=== PATIENT | male | born 1975 | race Two or more races ===

== ENCOUNTER 2022-06-18 15:19 | Emergency (ER) | payer SELFPAY ==
[~2022-06-18] VITALS: Ht 165.1 cm; Wt 74.8 kg
--- NOTE | 2022-06-18 15:42 | NUR ---
BIBRA 89 C/O ABDOMINAL PAIN AFTER "DOWN A WHOLE BOTTLE OF TEQUILA". AAOX3, BREATHING EVEN AND UNLABORED, CONNECTED TO MONITOR. AWAITING MD ORDERS.
[2022-06-18 16:05] LABS: BASOPHILS # (AUTO) 0.1 K/uL (0.0-0.2); BASOPHILS % (AUTO) 3.1 % (0.0-2.0); EOSINOPHILS % (AUTO) 2.9 % (0.0-6.0); HEMATOCRIT 39 % (39-51); LYMPHOCYTES # (AUTO) 0.4 K/uL (0.8-4.8); LYMPHOCYTES % (AUTO) 16.4 % (20.0-44.0); MEAN CORPUSCULAR HGB CONC 33 g/dl (31.0-36.0); MEAN CORPUSCULAR VOLUME 90 fL (80-96); MONOCYTES # (AUTO) 0.3 K/uL (0.1-1.30); MONOCYTES % (AUTO) 12.8 % (2.0-12.0); NEUTROPHILS # (AUTO) 1.5 K/uL (1.8-8.9); NEUTROPHILS % (AUTO) 64.8 % (43.0-81.0); RED BLOOD CELL COUNT(AUTO) 4.31 MIL/uL (4.5-6.0); WHITE BLOOD COUNT (AUTO) 2.3 K/uL (4.3-11.0)
[2022-06-18 16:09] LABS: PLATELET COUNT (AUTO) 21 K/uL (150-450)
[2022-06-18 16:23] LABS: CARBON DIOXIDE 25 mmol/L (21-32); CHLORIDE 106 mmol/L (98-107); CREATININE 0.6 mg/dL (0.6-1.3); GLUCOSE 106 mg/dL (74-106); POTASSIUM 3.1 mmol/L (3.5-5.1); SODIUM SERUM 142 mmol/L (136-145); UREA NITROGEN, BLOOD 6 mg/dL (7-18)
[2022-06-18 16:28] LABS: ALANINE AMINOTRANSFERASE 67 U/L (12-78); ALBUMIN 2.3 g/dL (3.4-5.0); ALCOHOL, BLOOD 316 mg/dL (0-0); ALKALINE PHOSPHATASE 254 U/L (46-116); ASPARTATE AMINOTRANSFERASE 193 U/L (15-37); BILIRUBIN,DIRECT 4.9 mg/dL (0.0-0.2); BILIRUBIN,TOTAL 6.3 mg/dL (0.2-1.0)
[2022-06-18] MEDS ORDERED: POTASSIUM CHLORIDE 20 MEQ TAB.PRT.SR PO ONE ×2 (16:30→16:56)
--- NOTE | 2022-06-18 17:08 | NUR ---
UNABLE TO PROVIDE URINE AT THIS TIME.
--- NOTE | 2022-06-18 18:00 | NUR ---
PER DR SNEED, NO NEED TO COLLECT URINE
[2022-06-18 18:19] LABS: LYMPHOCYTES % (MANUAL) 10 % (16-48); MONOCYTES % (MANUAL) 7 % (0-11.0); NEUTROPHILS % (MANUAL) 82 (42-76); REACTIVE LYMPHOCYTES 1 % (0-0)
--- NOTE | 2022-06-19 06:01 | NUR ---
Patient discharged to home in stable condition. Written and verbal after care instructions given. Patient verbalizes understanding of instruction.
[2022-06-19 07:09] VITALS: BP 136/70
== END 2022-06-19 07:09 | disposition home or self-care (01) ==
LOC: ER 15:27
DX: F10.129 Alcohol abuse with intoxication, unspecified (principal); Y90.8 Blood alcohol level of 240 mg/100 ml or more
CPT/HCPCS: 36415; 80048-TC; 80076-TC; 85025-TC; G0480

== ENCOUNTER 2022-08-12 22:02 | Emergency (ER) | payer MEDICAID ==
[~2022-08-12] VITALS: Ht 152.4 cm; Wt 79.8 kg
[~2022-08-12 22:02] MED LIST: FURO40TA5 PO; RIFA550T PO
--- NOTE | 2022-08-12 22:20 | NUR ---
[id number] from [place], [facility], bg 155. pt minimally responsive, khmer speaking only. pt ambulated to restroom. breathing does not appear labored. pt attached to monitor and pox. kept comfortable. will monitor
[2022-08-12 23:00] VITALS: BP 121/76
[2022-08-13 00:46] LABS: BASOPHILS % (AUTO) 1.1 % (0.0-2.0); EOSINOPHILS % (AUTO) 3.9 % (0.0-6.0); HEMATOCRIT 33 % (39-51); HEMOGLOBIN 10.8 g/dL (13.5-17.5); LYMPHOCYTES # (AUTO) 0.7 K/uL (0.8-4.8); LYMPHOCYTES % (AUTO) 26.5 % (20.0-44.0); MEAN CORPUSCULAR HGB CONC 33 g/dl (31.0-36.0); MEAN CORPUSCULAR VOLUME 91 fL (80-96); MONOCYTES # (AUTO) 0.3 K/uL (0.1-1.30); MONOCYTES % (AUTO) 9.5 % (2.0-12.0); NEUTROPHILS # (AUTO) 1.6 K/uL (1.8-8.9); RED BLOOD CELL COUNT(AUTO) 3.57 MIL/uL (4.5-6.0); WHITE BLOOD COUNT (AUTO) 2.7 K/uL (4.3-11.0)
[2022-08-13 00:50] LABS: PLATELET COUNT (AUTO) 39 K/uL (150-450)
[2022-08-13 00:58] LABS: BILIRUBIN,TOTAL 4.4 mg/dL (0.2-1.0); CALCIUM, SERUM 7.1 mg/dL (8.5-10.1); CREATININE 0.6 mg/dL (0.6-1.3); POTASSIUM 3.1 mmol/L (3.5-5.1); TOTAL PROTEIN, SERUM 6.4 g/dL (6.4-8.2)
[2022-08-13 01:36] LABS: ALBUMIN 2.1 g/dL (3.4-5.0); BILIRUBIN,DIRECT 3.3 mg/dL (0.0-0.2)
[2022-08-13 03:29] LABS: BASOPHILS % (MANUAL) 0 % (0.0-2.0); EOSINOPHILS % (MANUAL) 2 % (0-4); LYMPHOCYTES % (MANUAL) 20 % (16-48); MONOCYTES % (MANUAL) 9 % (0-11.0); NEUTROPHILS % (MANUAL) 69 (42-76)
[2022-08-13] MEDS: POTASSIUM CHLORIDE 20 MEQ TAB.PRT.SR PO ONE ×2 (04:00→04:07)
[2022-08-13] MEDS ORDERED: POTASSIUM CHLORIDE 20 MEQ TAB.PRT.SR PO ONE (04:03)
--- NOTE | 2022-08-13 06:25 | NUR ---
urine collected, sent to lab
--- NOTE | 2022-08-13 06:36 | NUR ---
unable to administer KCl PO, patient appears lethargic, and may be at high risk for aspiration. will endorse to AM shift RN
[2022-08-13 06:44] LABS: BILIRUBIN,URINE 1+ (NEGATIVE); COLOR,URINE YELLOW (YELLOW); LEUKOCYTE ESTERASE ,URINE NEGATIVE (NEGATIVE); NITRITE, URINE NEGATIVE (NEGATIVE); PROTEIN,URINE NEGATIVE (NEGATIVE); UGLUCOSE NEGATIVE (NEGATIVE)
[2022-08-13 07:06] LABS: BACTERIA,URINE Rare /HPF (None Seen); SQUAMOUS EPITHELIAL CELL,UR Few /HPF (None Seen); WBC,URINE 0-2 /HPF (0-3)
--- NOTE | 2022-08-13 10:44 | NUR ---
Pt NO Longer in the Room. NOT in Bathrooms or WR. Possibly Eloped. Dr Hyde made aware
== END 2022-08-13 10:50 | disposition home or self-care (01) ==
LOC: ER 22:10
DX: F10.129 Alcohol abuse with intoxication, unspecified (principal); R41.82 Altered mental status, unspecified; K74.60 Unspecified cirrhosis of liver; Y90.8 Blood alcohol level of 240 mg/100 ml or more
CPT/HCPCS: 36415; 70450-TC; 80048-TC; 80076-TC; 81001; 85025-TC; G0480

== ENCOUNTER 2023-01-26 13:08 | Emergency (ER) | payer MEDICAID ==
[~2023-01-26] VITALS: Ht 152.4 cm; Wt 81.2 kg
[2023-01-26 14:12] LABS: CALCIUM, SERUM 7.3 mg/dL (8.5-10.1); CREATININE 0.5 mg/dL (0.6-1.3); POTASSIUM 3.3 mmol/L (3.5-5.1)
[2023-01-26 14:18] LABS: ALBUMIN 2.1 g/dL (3.4-5.0); BILIRUBIN,TOTAL 4.3 mg/dL (0.2-1.0); TOTAL PROTEIN, SERUM 7.3 g/dL (6.4-8.2)
[2023-01-26 14:33] LABS: INR 1.34 (0.91-1.10); PARTIAL THROMBOPLASTIN TIME 33.8 SEC (24.3-34.3); PROTHROMBIN TIME 13.8 SECS (9.2-11.1)
[2023-01-26 14:38] LABS: BASOPHILS % (AUTO) 0.5 % (0.0-2.0); EOSINOPHILS # (AUTO) 0.1 K/uL (0.0-0.7); EOSINOPHILS % (AUTO) 3.3 % (0.0-6.0); HEMATOCRIT 27 % (39-51); HEMOGLOBIN 8.7 g/dL (13.5-17.5); LYMPHOCYTES # (AUTO) 0.3 K/uL (0.8-4.8); MEAN CORPUSCULAR HEMOGLOBIN 27 PG (26.0-33.0); MEAN CORPUSCULAR HGB CONC 32 g/dl (31.0-36.0); MEAN CORPUSCULAR VOLUME 84 fL (80-96); MONOCYTES # (AUTO) 0.2 K/uL (0.1-1.30); MONOCYTES % (AUTO) 8.4 % (2.0-12.0); NEUTROPHILS # (AUTO) 1.3 K/uL (1.8-8.9); NEUTROPHILS % (AUTO) 69.8 % (43.0-81.0); RED BLOOD CELL COUNT(AUTO) 3.24 MIL/uL (4.5-6.0); RED CELL DISTRIBUTION WIDTH 21.9 % (11.5-15.0)
[2023-01-26 14:46] LABS: APPEARANCE,URINE CLEAR (CLEAR); BILIRUBIN,URINE NEGATIVE (NEGATIVE); BLOOD, URINE 3+ Ery/uL (NEGATIVE); COLOR,URINE YELLOW (YELLOW); KETONES,URINE NEGATIVE (NEGATIVE); LEUKOCYTE ESTERASE ,URINE NEGATIVE (NEGATIVE); NITRITE, URINE NEGATIVE (NEGATIVE); PH,URINE 6.5 (5.0-8.0); PROTEIN,URINE TRACE mg/dl (NEGATIVE); UGLUCOSE NEGATIVE (NEGATIVE); UROBILINOGEN,URINE 0.2 EU/dL (0.2)
[2023-01-26 14:52] LABS: PLATELET COUNT (AUTO) 14 K/uL (150-450); WHITE BLOOD COUNT (AUTO) 1.9 K/uL (4.3-11.0)
[2023-01-26] MEDS ORDERED: POTASSIUM CHLORIDE 20 MEQ TAB.PRT.SR PO ONE ×2 (15:30→16:06)
[2023-01-26 15:36] LABS: ADD URINE CULTURE NO; BACTERIA,URINE None seen /HPF (None Seen); RBC,URINE 51-80 /HPF (0-2); SQUAMOUS EPITHELIAL CELL,UR 0-2 /HPF (None Seen); WBC,URINE 0-2 /HPF (0-3)
[2023-01-26 16:19] LABS: ANISOCYTOSIS 1+; BAND % (MANUAL) 2 % (0.0-5.0); LYMPHOCYTES % (MANUAL) 12 % (16-48); MONOCYTES % (MANUAL) 8 % (0-11.0); NEUTROPHILS % (MANUAL) 78 (42-76); PLATELET ESTIMATE DECREASED; ROULEAUX 1+
[2023-01-26 21:08] VITALS: BP 136/76; TEMP 97.9; O2SAT 97
== END 2023-01-26 21:10 | disposition home or self-care (01) ==
LOC: ER 13:10
DX: F10.129 Alcohol abuse with intoxication, unspecified (principal); D50.0 Iron deficiency anemia secondary to blood loss (chronic); D69.6 Thrombocytopenia, unspecified; Z79.899 Other long term (current) drug therapy; Y90.8 Blood alcohol level of 240 mg/100 ml or more
CPT/HCPCS: 36415; 76705-TC; 80048-TC; 80076-TC; 81001; 83690-TC; 84484-TC; 85025-TC; 85730-TC; G0480

== ENCOUNTER 2023-02-10 00:07 | Emergency (ER) | payer MEDICAID ==
[~2023-02-10] VITALS: Ht 162.6 cm; Wt 77.1 kg
[2023-02-10 02:13] LABS: BASOPHILS % (AUTO) 1.7 % (0.0-2.0); EOSINOPHILS # (AUTO) 0.1 K/uL (0.0-0.7); EOSINOPHILS % (AUTO) 5.6 % (0.0-6.0); HEMATOCRIT 26 % (39-51); HEMOGLOBIN 8.3 g/dL (13.5-17.5); LYMPHOCYTES # (AUTO) 0.4 K/uL (0.8-4.8); LYMPHOCYTES % (AUTO) 25.1 % (20.0-44.0); MEAN CORPUSCULAR HEMOGLOBIN 27 PG (26.0-33.0); MEAN CORPUSCULAR HGB CONC 32 g/dl (31.0-36.0); MEAN CORPUSCULAR VOLUME 85 fL (80-96); MONOCYTES # (AUTO) 0.2 K/uL (0.1-1.30); MONOCYTES % (AUTO) 14.7 % (2.0-12.0); NEUTROPHILS # (AUTO) 0.8 K/uL (1.8-8.9); NEUTROPHILS % (AUTO) 52.9 % (43.0-81.0); RED BLOOD CELL COUNT(AUTO) 3.07 MIL/uL (4.5-6.0); RED CELL DISTRIBUTION WIDTH 22.8 % (11.5-15.0)
[2023-02-10 02:16] LABS: PLATELET COUNT (AUTO) 23 K/uL (150-450); WHITE BLOOD COUNT (AUTO) 1.6 K/uL (4.3-11.0)
[2023-02-10 02:31] LABS: ALANINE AMINOTRANSFERASE 36 U/L (12-78); ALBUMIN 1.8 g/dL (3.4-5.0); ALCOHOL, BLOOD 210 mg/dL (0-10); ALKALINE PHOSPHATASE 238 U/L (46-116); ASPARTATE AMINOTRANSFERASE 86 U/L (15-37); CARBON DIOXIDE 23 mmol/L (21-32); CHLORIDE 108 mmol/L (98-107); CREATININE 0.6 mg/dL (0.6-1.3); GLUCOSE 91 mg/dL (74-106); POTASSIUM 3.3 mmol/L (3.5-5.1); SODIUM SERUM 140 mmol/L (136-145); TOTAL PROTEIN, SERUM 6.5 g/dL (6.4-8.2); UREA NITROGEN, BLOOD 7 mg/dL (7-18)
[2023-02-10 02:33] LABS: ACETAMINOPHEN <10 ug/ml (10-30); SALICYLATE < 2.3 mg/dL (2.8-20.0)
[2023-02-10 03:01] LABS: CANNABINOID, URINE NEGATIVE (NEGATIVE); COCCAINE, URINE NEGATIVE (NEGATIVE); OPIATE, URINE NEGATIVE (NEGATIVE); PHENCYCLIDINE SCREEN,URINE NEGATIVE (NEGATIVE)
[2023-02-10 03:44] LABS: AMPHETAMINE, URINE POSITIVE (NEGATIVE); BARBITURATE, URINE POSITIVE (NEGATIVE); BENZODIAZEPINE, URINE POSITIVE (NEGATIVE)
[2023-02-10 03:49] LABS: APPEARANCE,URINE CLEAR (CLEAR); BILIRUBIN,URINE 2+ (NEGATIVE); BLOOD, URINE 1+ Ery/uL (NEGATIVE); COLOR,URINE DARK YELLOW (YELLOW); KETONES,URINE NEGATIVE (NEGATIVE); LEUKOCYTE ESTERASE ,URINE NEGATIVE (NEGATIVE); NITRITE, URINE NEGATIVE (NEGATIVE); PH,URINE 6.5 (5.0-8.0); PROTEIN,URINE NEGATIVE (NEGATIVE); UGLUCOSE TRACE mg/dL (NEGATIVE); UROBILINOGEN,URINE >=8.0 EU/dL (0.2)
[2023-02-10 03:50] LABS: ADD URINE CULTURE NO; BACTERIA,URINE Rare /HPF (None Seen); SQUAMOUS EPITHELIAL CELL,UR Few /HPF (None Seen); WBC,URINE 0-2 /HPF (0-3)
[2023-02-10 06:59] VITALS: BP 119/76; TEMP 98.9; O2SAT 99
[2023-02-10 13:06] LABS: ANISOCYTOSIS 1+; BASOPHILS % (MANUAL) 0 % (0.0-2.0); EOSINOPHILS % (MANUAL) 5 % (0-4); LYMPHOCYTES % (MANUAL) 22 % (16-48); MONOCYTES % (MANUAL) 12 % (0-11.0); NEUTROPHILS % (MANUAL) 61 (42-76); PLATELET ESTIMATE DECREASED
== END 2023-02-10 06:59 | disposition home or self-care (01) ==
LOC: ER 00:09
DX: F10.129 Alcohol abuse with intoxication, unspecified (principal); M79.604 Pain in right leg; K74.60 Unspecified cirrhosis of liver; Z79.899 Other long term (current) drug therapy; Z59.00 Homelessness unspecified; Y90.7 Blood alcohol level of 200-239 mg/100 ml
CPT/HCPCS: 36415; 71045-TC; 80048-TC; 80076-TC; 81001; 85025-TC; 93970-TC; G0480

== ENCOUNTER 2023-11-19 15:50 | Inpatient (IN) | payer MEDICAID, OTHER ==
[~2023-11-19] VITALS: Ht 165.1 cm; Wt 79.8 kg
[2023-11-19] MEDS ORDERED: IBUPROFEN 600 MG TABLET ONE (16:58)
[2023-11-19] MEDS ORDERED: ONDANSETRON HCL/PF 4 MG/2 ML VIAL ONE (16:58)
[2023-11-19 17:31] LABS: BASOPHILS # (AUTO) 0.1 K/uL (0.0-0.2); EOSINOPHILS # (AUTO) 0.1 K/uL (0.0-0.7); EOSINOPHILS % (AUTO) 1.6 % (0.0-6.0); HEMATOCRIT 26 % (39-51); HEMOGLOBIN 9.1 g/dL (13.5-17.5); LYMPHOCYTES # (AUTO) 0.3 K/uL (0.8-4.8); LYMPHOCYTES % (AUTO) 4.1 % (20.0-44.0); MEAN CORPUSCULAR HEMOGLOBIN 33 PG (26.0-33.0); MEAN CORPUSCULAR HGB CONC 36 g/dl (31.0-36.0); MEAN CORPUSCULAR VOLUME 92 fL (80-96); MONOCYTES # (AUTO) 0.6 K/uL (0.1-1.30); MONOCYTES % (AUTO) 7.9 % (2.0-12.0); NEUTROPHILS # (AUTO) 6.7 K/uL (1.8-8.9); NEUTROPHILS % (AUTO) 85.4 % (43.0-81.0); PLATELET COUNT (AUTO) 62 K/uL (150-450); RED CELL DISTRIBUTION WIDTH 18.2 % (11.5-15.0); WHITE BLOOD COUNT (AUTO) 7.8 K/uL (4.3-11.0)
[2023-11-19] MEDS: IBUPROFEN 600 MG TABLET PO ONE (17:36)
[2023-11-19] MEDS: ONDANSETRON HCL/PF 4 MG/2 ML VIAL IVP ONE (17:36)
[2023-11-19 17:40] LABS: CALCIUM, SERUM 7.4 mg/dL (8.5-10.1); CARBON DIOXIDE 20 mmol/L (21-32); CHLORIDE 94 mmol/L (98-107); CREATININE 1.2 mg/dL (0.6-1.3); GLUCOSE 109 mg/dL (74-106); POTASSIUM 4.2 mmol/L (3.5-5.1); SODIUM SERUM 123 mmol/L (136-145); UREA NITROGEN, BLOOD 26 mg/dL (7-18)
[2023-11-19 17:45] LABS: ALANINE AMINOTRANSFERASE 45 U/L (12-78); ALKALINE PHOSPHATASE 201 U/L (46-116); ASPARTATE AMINOTRANSFERASE 49 U/L (15-37); BILIRUBIN,DIRECT 2.1 mg/dL (0.0-0.2); LIPASE 47 U/L (16-77); TOTAL PROTEIN, SERUM 5.1 g/dL (6.4-8.2)
[2023-11-19 17:48] LABS: ALBUMIN 1.4 g/dL (3.4-5.0)
[2023-11-19 17:53] LABS: INR 1.38 (0.91-1.10); PARTIAL THROMBOPLASTIN TIME 34.2 SEC (24.3-34.3); PROTHROMBIN TIME 14.3 SECS (9.2-11.1)
[2023-11-19] MEDS ORDERED: SPIR100T5 PO (18:03)
[2023-11-19] MEDS ORDERED: FURO80TA85 PO (18:03)
[2023-11-19] MEDS ORDERED: LACT10SO58 PO (18:03)
[2023-11-19] MEDS ORDERED: POTA-88 PO (18:03)
[2023-11-19] MEDS ORDERED: FUROSEMIDE 40 MG/4 ML VIAL ONE (18:14)
[2023-11-19] MEDS: IV NS 0.9% 1,000 ML BAG IV ONE (18:20)
[2023-11-19 18:51] LABS: EOSINOPHILS % (MANUAL) 2 % (0-4); LYMPHOCYTES % (MANUAL) 3 % (16-48); MONOCYTES % (MANUAL) 5 % (0-11.0); NEUTROPHILS % (MANUAL) 90 (42-76); PLATELET ESTIMATE DECRE
[2023-11-19 18:52] LABS: ANISOCYTOSIS 1+; TARGET CELLS RARE
[2023-11-19] MEDS ORDERED: MAG HYDROX/AL HYDROX/SIMETH 30 ML UDC PO PRN (19:30)
[2023-11-19] MEDS ORDERED: MAGNESIUM HYDROXIDE 30 ML UDC PO PRN (19:30)
[2023-11-19] MEDS: HYDROMORPHONE 1 MG/1 ML DISP.SYRIN IV PRN (21:13)
[2023-11-19] MEDS: ONDANSETRON HCL/PF 4 MG/2 ML VIAL IVP PRN (21:29)
[2023-11-19 22:00] VITALS: BP 136/74; TEMP 98.4; O2SAT 100
[2023-11-19] MEDS ORDERED: ALBUMIN 25% 12.5 GM/50 ML BOTTLE IV PRN ×2 (22:00)
[2023-11-19] MEDS: PANTOPRAZOLE 40 MG VIAL IV SCH (23:03)
[2023-11-20 04:00] VITALS: BP 116/55; TEMP 98; O2SAT 100
[2023-11-20 06:44] LABS: INR 1.37 (0.91-1.10); PARTIAL THROMBOPLASTIN TIME 32.1 SEC (24.3-34.3); PROTHROMBIN TIME 14.2 SECS (9.2-11.1)
[2023-11-20 06:52] LABS: CALCIUM, SERUM 7.9 mg/dL (8.5-10.1); CREATININE 1.1 mg/dL (0.6-1.3); POTASSIUM 4.6 mmol/L (3.5-5.1)
[2023-11-20 06:54] LABS: BASOPHILS % (AUTO) 0.5 % (0.0-2.0); EOSINOPHILS # (AUTO) 0.1 K/uL (0.0-0.7); EOSINOPHILS % (AUTO) 1.2 % (0.0-6.0); HEMATOCRIT 27 % (39-51); HEMOGLOBIN 9.5 g/dL (13.5-17.5); LYMPHOCYTES # (AUTO) 0.2 K/uL (0.8-4.8); MEAN CORPUSCULAR HEMOGLOBIN 33 PG (26.0-33.0); MEAN CORPUSCULAR HGB CONC 36 g/dl (31.0-36.0); MEAN CORPUSCULAR VOLUME 93 fL (80-96); MONOCYTES # (AUTO) 0.5 K/uL (0.1-1.30); MONOCYTES % (AUTO) 4.7 % (2.0-12.0); NEUTROPHILS # (AUTO) 9.7 K/uL (1.8-8.9); NEUTROPHILS % (AUTO) 91.6 % (43.0-81.0); RED BLOOD CELL COUNT(AUTO) 2.87 MIL/uL (4.5-6.0); RED CELL DISTRIBUTION WIDTH 17.9 % (11.5-15.0); WHITE BLOOD COUNT (AUTO) 10.6 K/uL (4.3-11.0)
[2023-11-20 07:00] LABS: PLATELET COUNT (AUTO) 39 K/uL (150-450)
[2023-11-20 07:02] LABS: ALBUMIN 1.5 g/dL (3.4-5.0); BILIRUBIN,DIRECT 2.6 mg/dL (0.0-0.2); BILIRUBIN,TOTAL 4.9 mg/dL (0.2-1.0); MAGNESIUM 1.8 mg/dL (1.8-2.4); PHOSPHORUS 3.5 mg/dL (2.5-4.9); TOTAL PROTEIN, SERUM 5.2 g/dL (6.4-8.2)
[2023-11-20 08:00] VITALS: BP 135/78; TEMP 98.5; O2SAT 100
[2023-11-20] MEDS: SPIRONOLACTONE 25 MG TABLET PO SCH (08:13)
[2023-11-20] MEDS: LACTULOSE 10 G/15 ML UDC (PYXIS) PO SCH (08:13)
[2023-11-20] MEDS: FUROSEMIDE 40 MG TABLET PO SCH (08:13)
[2023-11-20 08:15] LABS: ANISOCYTOSIS 1+; BASOPHILS % (MANUAL) 0 % (0.0-2.0); EOSINOPHILS % (MANUAL) 2 % (0-4); LYMPHOCYTES % (MANUAL) 4 % (16-48); MONOCYTES % (MANUAL) 6 % (0-11.0); NEUTROPHILS % (MANUAL) 88 (42-76); PLATELET ESTIMATE DECREASED
[2023-11-20] MEDS: POTASSIUM CHLORIDE 20 MEQ TAB.PRT.SR PO SCH (08:20)
[2023-11-20 16:00] VITALS: BP 123/68; TEMP 99; O2SAT 99
[2023-11-20 19:12] LABS: URINE SODIUM, RANDOM < 5 mmol/l (40-220)
[2023-11-20 20:00] VITALS: BP 118/66; TEMP 98.7; O2SAT 100
[2023-11-20] MEDS: ACETAMINOPHEN 325 MG TABLET PO PRN (20:35)
[2023-11-21 04:00] VITALS: BP 109/66; TEMP 98.1; O2SAT 100
[2023-11-21 07:18] LABS: BASOPHILS % (AUTO) 0.2 % (0.0-2.0); EOSINOPHILS # (AUTO) 0.2 K/uL (0.0-0.7); EOSINOPHILS % (AUTO) 2.7 % (0.0-6.0); HEMATOCRIT 25 % (39-51); HEMOGLOBIN 8.8 g/dL (13.5-17.5); LYMPHOCYTES # (AUTO) 0.4 K/uL (0.8-4.8); MEAN CORPUSCULAR HEMOGLOBIN 33 PG (26.0-33.0); MEAN CORPUSCULAR HGB CONC 36 g/dl (31.0-36.0); MEAN CORPUSCULAR VOLUME 92 fL (80-96); MONOCYTES # (AUTO) 0.8 K/uL (0.1-1.30); NEUTROPHILS % (AUTO) 81.1 % (43.0-81.0); RED BLOOD CELL COUNT(AUTO) 2.69 MIL/uL (4.5-6.0); RED CELL DISTRIBUTION WIDTH 18.4 % (11.5-15.0); WHITE BLOOD COUNT (AUTO) 7.4 K/uL (4.3-11.0)
[2023-11-21 07:30] LABS: PLATELET COUNT (AUTO) 34 K/uL (150-450)
[2023-11-21 07:55] LABS: ALBUMIN 1.5 g/dL (3.4-5.0); BILIRUBIN,DIRECT 2.5 mg/dL (0.0-0.2); CALCIUM, SERUM 7.6 mg/dL (8.5-10.1); CREATININE 1.2 mg/dL (0.6-1.3); MAGNESIUM 1.9 mg/dL (1.8-2.4); PHOSPHORUS 3.6 mg/dL (2.5-4.9); POTASSIUM 4.1 mmol/L (3.5-5.1); TOTAL PROTEIN, SERUM 5.1 g/dL (6.4-8.2)
[2023-11-21 08:01] LABS: THYROID STIMULATING HORMONE 2.16 uIU/mL (0.358-3.74); URIC ACID 6.7 mg/dL (2.6-7.2)
[2023-11-21 12:39] LABS: ANISOCYTOSIS 1+; BASOPHILS % (MANUAL) 0 % (0.0-2.0); EOSINOPHILS % (MANUAL) 3 % (0-4); LYMPHOCYTES % (MANUAL) 4 % (16-48); MONOCYTES % (MANUAL) 10 % (0-11.0); NEUTROPHILS % (MANUAL) 83 (42-76); OVALOCYTES 1+; PLATELET ESTIMATE DECREASED
[2023-11-23 15:50] LABS: OSMOLALITY,URINE 544 mOS/kg (340-1090)
== END 2023-11-21 09:55 | disposition left against medical advice (07) | DRG 280 ==
LOC: ER 15:56 → MEDSG1 19:58
PROVIDERS: ATTEND Internal Medicine
DX: K70.31 Alcoholic cirrhosis of liver with ascites (principal); N17.0 Acute kidney failure with tubular necrosis; E43 Unspecified severe protein-calorie malnutrition; K72.10 Chronic hepatic failure without coma; K76.6 Portal hypertension; E87.1 Hypo-osmolality and hyponatremia; D63.8 Anemia in other chronic diseases classified elsewhere; D69.59 Other secondary thrombocytopenia; E88.09 Other disorders of plasma-protein metabolism, not elsewhere classified; E87.70 Fluid overload, unspecified; M89.8X9 Other specified disorders of bone, unspecified site; Z59.00 Homelessness unspecified; I10 Essential (primary) hypertension; E80.6 Other disorders of bilirubin metabolism; F10.21 Alcohol dependence, in remission
CPT/HCPCS: 36415; 71045-TC; 76700-TC; 80048-TC; 80076-TC; 83690-TC; 83735-TC; 83935-TC; 84100-TC; 84300-TC; 84443-TC; 84484-TC; 84550-TC; 85025-TC; 85730-TC; 86850-TC; 87081-TC; C9113; G0378; G0480; J1170; J1940; J2405; J7030; J7050